=== PATIENT | male | born 1960 | race African-American/Black ===

== ENCOUNTER 2018-03-10 10:20 | Inpatient (IN) | payer OTHER ==
[2018-03-10 11:05] VITALS: BMI 33.2
--- NOTE | 2018-03-10 13:25 | HP ---
CIWA Score - Admission Criteria OASAS Guidelines: Admission for Medically Managed Detox: Requires at least one of the followin. CIWA greater than 12 2. Seizures within the past 24 hours 3. Delirium tremens within the past 24 hours 4. Hallucinations within the past 24 hours 5. Acute intervention needed for co occurring medical disorder 6. Acute intervention needed for co occurring psychiatric disorder 7. Severe withdrawal that cannot be handled at a lower level of care (continued vomiting, continued diarrhea, abnormal vital signs) requiring intravenous medication and/or fluids 8. Admission ROS [facility] - HPI Chief Complaint: i need help to come in for rehab from cocaine Allergies/Adverse Reactions: Allergies Allergy/AdvReac Type Severity Reaction Status Date / Time No Known Allergies Allergy Verified 03/10/18 11:43 History of Present Illness: this 58 years old male with cocaine dependence,sent in by [facility] out patient program history of hypertension and type 2 dm positive ppd treated in 1992 insomnia longest period of sobriety 2 years fail out patient program Exam Limitations: No Limitations - Ebola screening Have you traveled outside of the country in the last 21 days: No Have you had contact with anyone from an Ebola affected area: No Have you been sick,other than usual withdrawal symptoms: No Do you have a fever: No - Review of Systems Constitutional: No Symptoms Reported EENT: reports: No Symptoms Reported Respiratory: reports: No Symptoms reported Cardiac: reports: No Symptoms Reported GI: reports: No Symptoms Reported : reports: No Symptoms Reported Musculoskeletal: reports: No Symptoms Reported Integumentary: reports: No Symptoms Reported Neuro: reports: No Symptoms reported Hematology: reports: No Symptoms Reported Psychiatric: reports: No Sypmtoms Reported, Judgement Intact, Mood/Affect Appropiate, Orientated x3 (insomnia) Patient History - Patient Medical History Hx Anemia: No Hx Asthma: No Hx Chronic Obstructive Pulmonary Disease (COPD): No Hx Cancer: No Hx Cardiac Disorders: No Hx Congestive Heart Failure: No Hx Hypertension: Yes (on lisinopril 10 mgs po daily) Hx Hypercholesterolemia: No Hx Pacemaker: No HX Cerebrovascular Accident: No Hx Seizures: No Hx Dementia: No Hx Diabetes: Yes (NIDDM) Hx Gastrointestinal Disorders: Yes (acid reflux) Hx Liver Disease: No Hx Genitourinary Disorders: No Hx Sexually Transmitted Disorders: No Hx Renal Disease (ESRD): No Hx Thyroid Disease: No Hx Human Immunodeficiency Virus (HIV): No (tested eight months ago, [facility]) Hx Hepatitis C: No Hx Depression: No Hx Suicide Attempt: No Hx Bipolar Disorder: No Hx Schizophrenia: No Other Medical History: no suicidal,no homicidal - Patient Surgical History Past Surgical History: Yes Hx Neurologic Surgery: No Hx Cataract Extraction: No Hx Cardiac Surgery: No Hx Lung Surgery: No Hx Breast Surgery: No Hx Breast Biopsy: No Hx Abdominal Surgery: No Hx Appendectomy: No Hx Cholecystectomy: Yes (2013 lap) Hx Genitourinary Surgery: No Hx Section: No Hx Orthopedic Surgery: Yes (left rotator cuff in 2012 arthroscopy 2013) Hx Hysterectomy: No Anesthesia Reaction: No - PPD History Previous Implant?: Yes Documented Results: Positive w/o proof Implanted On Prior [facility] Admission?: No PPD to be Administered?: No - Smoking Cessation Smoking history: Never smoked Have you smoked in the past 12 months: No Hx Chewing Tobacco Use: No Initiated information on smoking cessation: No - Substance & Tx. History Hx Alcohol Use: No Hx Substance Use: Yes Substance Use Type: Cocaine Hx Substance Use Treatment: Yes (2012 in [facility] rehab) - Substances Abused Crack Route: Smoking Frequency: Daily Amount used: $500-600 Age of first use: 23 Date of Last Use: 02/24/18 Family Disease History - Family Disease History Family History: Denies Admission Physical Exam S - Vital Signs Vital Signs: Vital Signs - 24 hr 03/10/18 11:04 Temperature 96.5 F L Pulse Rate 44 L Respiratory 16 Rate Blood Pressure 132/61 - Physical General Appearance: Yes: Within Normal Limits HEENTM: Yes: Hearing grossly Normal, Normal ENT Inspection, AMANDA, Pharynx Normal Respiratory: Yes: Lungs Clear, Normal Breath Sounds, No Respiratory Distress Neck: Yes: Within Normal Limits, Supple, Trachea in good position Breast: Yes: Within Normal Limits Cardiology: Yes: Within Normal Limits Abdominal: Yes: Within Normal Limits, Normal Bowel Sounds, Non Tender, Flat, Soft Genitourinary: Yes: Within Normal Limits Back: Yes: Within Normal Limits Musculoskeletal: Yes: Within Normal Limits Extremities: Yes: Within Normal Limits Neurological: Yes: Within Normal Limits Integumentary: Yes: Within Normal Limits Lymphatic: Yes: Within Normal Limits - Diagnostic (1) Cocaine dependence Current Visit: No Status: Active (2) DM2 (diabetes mellitus, type 2) Current Visit: Yes Status: Acute (3) Essential hypertension Current Visit: Yes Status: Acute (4) Insomnia Current Visit: Yes Status: Acute Cleared for Admission BHS - Detox or Rehab Claeared for Rehab Admission: Yes BHS Breath Alcohol Content Breath Alcohol Content: 0 Urine Drug Screen - Results Drug Screen Negative: Yes Inpatient Rehab Admission - Initial Determination Are CD services needed?: Yes Free of communicable disease: Yes Not in need of hospitalization: Yes - Rehab Admission Criteria Previous failed treatment: Yes Poor recovery environment: Yes Comorbidities: Yes Lacks judgement: No Patient is meeting Inpatient Rehab admission criteria:: Yes
[2018-03-10] MEDS ORDERED: MAGNESIUM HYDROX 2400MG/30ML ORAL SUSPENSION 30 ML CUP PO PRN (13:36)
[2018-03-10] MEDS ORDERED: MAGNESIUM CITRATE 300 ML BOTTLE PO PRN (13:36)
[2018-03-10] MEDS ORDERED: ACETAMINOPHEN 325 MG TABLET (FP) PO PRN (13:36)
[2018-03-10] MEDS ORDERED: P-EPHED 60MG/TRIPROLIDI 2.5MG TABLET PO PRN (13:36)
[2018-03-10] MEDS ORDERED: guaiFENesin/D-METHORPHAN HB 10 ML UNIT-DOSE CUPS PO PRN (13:36)
[2018-03-10] MEDS ORDERED: MENTHOL/PHENOL 1 EACH UD MM PRN (13:36)
[2018-03-10] MEDS ORDERED: IBUPROFEN 400 MG TABLET (FP) PO PRN (13:36)
[2018-03-10] MEDS ORDERED: hydrOXYzine PAMOATE 50 MG CAPSULE (FP) PO PRN (13:36)
[2018-03-10] MEDS ORDERED: LOPERAMIDE HCL 2 MG CAPSULE PO PRN (13:36)
--- NOTE | 2018-03-10 16:06 | HP ---
Psychiatrist Admission - Data Date of interview: 03/11/18 Admission source: [facility] Identifying data: Patient is a 58 year old single male, father of two, unemployed (denies receiving financial assistance), and resides with a roomate. This is one of multiple admissions to rehab to [facility]. Patient admitted to for cocaine dependence. Medical History: hypertension, acid reflux, diabetes, cholecystectomy, left rotator cuff in 2012 arthroscopy 2014 Psychiatric History: Patient denies h/o psychiatric hospitalization, outpatient care, and suicide attempt. As per records patient has seen Dr. Heredia in the past to address insomnia. He was given a prescription of trazodone which patient states was effective. Physical/Sexual Abuse/Trauma History: denies. Additional Comment: Served in [employer] -. 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 Served in [employer] Vital Signs: Vital Signs - 24 hr 03/10/18 03/10/18 11:04 14:48 Temperature 96.5 F L 98 F Pulse Rate 44 L 89 Respiratory 16 19 Rate Blood Pressure 132/61 132/71 Allergies/Adverse Reactions: Allergies Allergy/AdvReac Type Severity Reaction Status Date / Time No Known Allergies Allergy Verified 03/10/18 11:43 Date of last physical exam: 03/10/18 Concur with the findings of this exam: Yes - Substance Abuse/Tx History Hx Alcohol Use: No Hx Substance Use: Yes (Cocaine- varies) Hx Substance Use Treatment: Yes ([facility] and [facility]) Mental Status Exam - Mental Status Exam Alert and Oriented to: Time, Place, Person Cognitive Function: Good Patient Appearance: Well Groomed Mood: Euthymic Affect: Appropriate Patient Behavior: Cooperative Speech Pattern: Clear Voice Loudness: Normal Thought Process: Intact, Goal Oriented Thought Disorder: Not Present Hallucinations: Denies Suicidal Ideation: Denies Homicidal Ideation: Denies Insight/Judgement: Poor Sleep: Poorly Appetite: Fair Muscle strength/Tone: Normal Gait/Station: Normal Psychiatric Findings - Problem List ([place] 1, 2,3) (1) Cocaine dependence Current Visit: Yes Status: Acute (2) Substance-induced sleep disorder Current Visit: Yes Status: Acute - Initial Treatment Plan Initial Treatment Plan: Psychoeducation provided. Rehabilitation in progress. Will order Trazodone 50mg qhs for insomnia. Patient reports favorable effects from taking trazodone in the past. Patient made aware of the risk of priapism when accepting Trazodone. Benefits and side effects discussed. Verbal consent given.
[2018-03-10] MEDS: metFORMIN HCL 500 MG TABLET (FP) PO SCH (16:26)
[2018-03-10 20:48] LABS: HEMATOCRIT 44.5 % (35.4-49); HEMOGLOBIN 15.5 GM/dL (11.7-16.9); MCH 30.9 pg (25.7-33.7); MCHC 34.8 g/dl (32.0-35.9); MEAN CELL VOLUME 88.7 fl (80-96); MEAN PLT VOLUME 8.6 fl (7.5-11.1); PLATELET COUNT 246 K/MM3 (134-434); RBC 5.02 M/mm3 (4.00-5.60); RDW 13.2 % (11.9-15.9); WHITE BLOOD COUNT 7.3 K/mm3 (4.0-10.0)
[2018-03-10 21:06] LABS: ALK PHOS 115 U/L (45-117); ANION GAP 7 MMOL/L (8-16); BILIRUBIN,TOTAL 0.4 mg/dL (0.2-1); BLOOD UREA NITROGEN 17 mg/dL (7-18); CALCIUM 9.7 mg/dL (8.5-10.1); CHLORIDE 100 mmol/L (98-107); CO2 29 mmol/L (21-32); CREATININE 1.2 mg/dL (0.55-1.3); GLUCOSE,RANDOM 266 mg/dL (74-106); POTASSIUM 4.3 mmol/L (3.5-5.1); SGOT/AST 10 U/L (15-37); SGPT/ALT 30 U/L (13-61); SODIUM 135 mmol/L (136-145); TOT PROT 7.7 g/dl (6.4-8.2)
[2018-03-10] MEDS: traZODone HCL 50 MG TABLET (FP) PO SCH (21:27)
[2018-03-10] MEDS: THIAMINE HCL 100 MG TABLET (FP) PO SCH (21:27)
[2018-03-10 22:02] LABS: URINE APPEARANCE SLCLOUDY; URINE BILIRUBIN NEGATIVE (<2.0 mg/dL); URINE COLOR YELLOW; URINE GLUCOSE (UA) 2+ (NEGATIVE); URINE KETONE NEGATIVE (NEGATIVE); URINE LEUK ESTERASE NEGATIVE (NEGATIVE); URINE NITRITE NEGATIVE (NEGATIVE); URINE PROTEIN NEGATIVE (NEGATIVE); URINE UROBILINOGEN NEGATIVE mg/dL (0.2-1.0)
[2018-03-11] MEDS: metFORMIN HCL 500 MG TABLET (FP) PO SCH ×2 (06:16→16:58)
[2018-03-11] MEDS: LISINOPRIL 10 MG TABLET (FP) PO SCH (10:32)
[2018-03-11] MEDS: PRENATAL VITAMINS W/ FOLIC ACID TABLET (FP) PO SCH (10:32)
--- NOTE | 2018-03-11 12:37 | EKG ---
Test Reason : Blood Pressure : / mmHG Vent. Rate : 087 BPM Atrial Rate : 087 BPM P-R Int : 188 ms QRS Dur : 106 ms QT Int : 368 ms P-R-T Axes : 070 -08 049 degrees QTc Int : 442 ms SINUS RHYTHM WITH FREQUENT PREMATURE VENTRICULAR COMPLEXES T WAVE ABNORMALITY, CONSIDER ANTEROLATERAL ISCHEMIA ABNORMAL ECG Confirmed by MD KOBE, GIGI ([id number]) on 03/11/2018 12:37:05 PM Referred By: Confirmed By:GIGI BULLOCK MD
--- NOTE | 2018-03-11 15:25 | PN ---
BHS Progress Note Note: Reviewed available lab and cxray results with pt per his request
[2018-03-11] MEDS: MAG HYDROX/AL HYDROX/SIMETH 30 ML UNIT-DOSE CUP PO PRN (18:46)
[2018-03-11] MEDS: traZODone HCL 50 MG TABLET (FP) PO SCH (21:45)
[2018-03-11] MEDS: THIAMINE HCL 100 MG TABLET (FP) PO SCH (21:46)
[2018-03-12] MEDS: metFORMIN HCL 500 MG TABLET (FP) PO SCH ×2 (06:19→16:44)
[2018-03-12] MEDS: LISINOPRIL 10 MG TABLET (FP) PO SCH (10:23)
[2018-03-12] MEDS: PRENATAL VITAMINS W/ FOLIC ACID TABLET (FP) PO SCH (10:23)
--- NOTE | 2018-03-12 14:32 | PN ---
[facility] Progress Note Note: Patient reports ongoing sleeping difficulties,still unable to fall asleep and stay in sleep.Properties of Trazodone has been discussed with the patient including side effects,benefits and dose adjustment.Trazodone 50 mg po hs will be adjusted to 100 mg po hs.Supportive therapy provided.
[2018-03-12] MEDS: MAG HYDROX/AL HYDROX/SIMETH 30 ML UNIT-DOSE CUP PO PRN (19:18)
[2018-03-12] MEDS: traZODone HCL 100 MG TABLET (FP) PO SCH (21:41)
[2018-03-12] MEDS: THIAMINE HCL 100 MG TABLET (FP) PO SCH (21:41)
[2018-03-13] MEDS: metFORMIN HCL 500 MG TABLET (FP) PO SCH ×2 (06:52→16:37)
[2018-03-13] MEDS: LISINOPRIL 10 MG TABLET (FP) PO SCH (10:49)
[2018-03-13] MEDS: PRENATAL VITAMINS W/ FOLIC ACID TABLET (FP) PO SCH (10:49)
[2018-03-13] MEDS: traZODone HCL 100 MG TABLET (FP) PO SCH (21:35)
[2018-03-13] MEDS: MELATONIN 5 MG TABLETS PO PRN (21:36)
[2018-03-13] MEDS: THIAMINE HCL 100 MG TABLET (FP) PO SCH (21:36)
[2018-03-14] MEDS: metFORMIN HCL 500 MG TABLET (FP) PO SCH ×2 (07:05→16:35)
[2018-03-14] MEDS: PRENATAL VITAMINS W/ FOLIC ACID TABLET (FP) PO SCH (10:04)
[2018-03-14] MEDS: LISINOPRIL 10 MG TABLET (FP) PO SCH (10:05)
[2018-03-14] MEDS: THIAMINE HCL 100 MG TABLET (FP) PO SCH (21:46)
[2018-03-14] MEDS: MELATONIN 5 MG TABLETS PO PRN (21:46)
[2018-03-14] MEDS: traZODone HCL 100 MG TABLET (FP) PO SCH (21:46)
[2018-03-15] MEDS: metFORMIN HCL 500 MG TABLET (FP) PO SCH ×2 (06:51→16:33)
[2018-03-15] MEDS: LISINOPRIL 10 MG TABLET (FP) PO SCH (09:58)
[2018-03-15] MEDS: PRENATAL VITAMINS W/ FOLIC ACID TABLET (FP) PO SCH (09:58)
[2018-03-15] MEDS: MAG HYDROX/AL HYDROX/SIMETH 30 ML UNIT-DOSE CUP PO PRN (14:10)
[2018-03-15] MEDS: THIAMINE HCL 100 MG TABLET (FP) PO SCH (21:32)
[2018-03-15] MEDS: MELATONIN 5 MG TABLETS PO PRN (21:32)
[2018-03-15] MEDS: traZODone HCL 100 MG TABLET (FP) PO SCH (21:32)
[2018-03-16] MEDS: metFORMIN HCL 500 MG TABLET (FP) PO SCH ×2 (06:25→16:31)
[2018-03-16] MEDS: PRENATAL VITAMINS W/ FOLIC ACID TABLET (FP) PO SCH (10:01)
[2018-03-16] MEDS: LISINOPRIL 10 MG TABLET (FP) PO SCH (10:01)
[2018-03-16] MEDS: THIAMINE HCL 100 MG TABLET (FP) PO SCH (21:33)
[2018-03-16] MEDS: traZODone HCL 100 MG TABLET (FP) PO SCH (21:33)
[2018-03-16] MEDS: MELATONIN 5 MG TABLETS PO PRN (21:33)
[2018-03-17] MEDS: metFORMIN HCL 500 MG TABLET (FP) PO SCH ×2 (06:20→16:36)
[2018-03-17] MEDS: LISINOPRIL 10 MG TABLET (FP) PO SCH (10:52)
[2018-03-17] MEDS: PRENATAL VITAMINS W/ FOLIC ACID TABLET (FP) PO SCH (10:53)
--- NOTE | 2018-03-17 13:32 | PN ---
Psychiatric Progress Note Vital Signs: Vital Signs Period Temp Pulse Resp BP Sys/Murphy Pulse Ox Last 24 Hr 97.6 F 82 16-18 136/76 Date of Session: 03/17/18 Chief Complaint:: Discharge Note HPI: Patient addressing Cocaine Dependence comorbid with Substance-Induced Sleep Disorder ROS: HTN, DM, GERD were medically managed Current Medications: Active Medications Generic Name Dose Route Start Last Admin Trade Name Freq PRN Reason Stop Dose Admin Acetaminophen 650 mg 03/10/18 13:36 Tylenol - PO Q4H PRN FEVER Al Hydroxide/Mg Hydroxide 30 ml 03/10/18 13:36 03/15/18 14:10 Mylanta Oral Suspension - PO 30 ml Q6H PRN Administration DYSPEPSIA Eucalyptus/Menthol/Phenol/Sorbitol 1 each 03/10/18 13:36 Cepastat Lozenge - MM Q4H PRN SORE THROAT Guaifenesin 10 ml 03/10/18 13:36 Robitussin Dm - PO Q6H PRN COUGH Hydroxyzine Pamoate 50 mg 03/10/18 13:36 Vistaril - PO Q4H PRN AGITATION Ibuprofen 400 mg 03/10/18 13:36 Motrin - PO Q6H PRN Pain level 4-6 Lisinopril 10 mg 03/11/18 10:00 03/17/18 10:52 Prinivil PO 10 mg DAILY VASILE Administration Loperamide HCl 4 mg 03/10/18 13:36 Imodium - PO Q6H PRN DIARRHEA Magnesium Citrate 300 ml 03/10/18 13:36 Citroma - PO Q48H PRN CONSTIPATION Magnesium Hydroxide 30 ml 03/10/18 13:36 Milk Of Magnesia - PO DAILY PRN CONSTIPATION Melatonin 5 mg 03/10/18 22:00 03/16/18 21:33 Melatonin PO 5 mg HS PRN Administration INSOMNIA Metformin HCl 500 mg 03/10/18 16:30 03/17/18 06:20 Glucophage - PO 500 mg BID@0700,1630 VASILE Administration Multivit/Folic Acid/Iron 1 tab 03/11/18 10:00 03/17/18 10:53 Vitamins (Sjr) - PO 1 tab DAILY VASILE Administration Pseudoephedrine/Triprolidine 1 combo 03/10/18 13:36 Actifed - PO TID PRN NASAL CONGESTION Thiamine HCl 100 mg 03/10/18 22:00 03/16/18 21:33 Vitamin B1 - PO Not Given HS VASILE Trazodone HCl 100 mg 03/12/18 22:00 03/16/18 21:33 Desyrel - PO 100 mg HS VASILE Administration Current Side Effect: No Lab tests ordered: Yes Lab tests reviewed: Yes Provider note:: Patient will complete this program on 03/18/18. He has met his treatment goals and will continue to address his issues in outpatient at [facility] at [address] [place] [address]. Told sql report writer that from his participation in this program, he has learned that it is very important to use the tools acquired . He responded well to Fpzzlhand215 mg po HS. Script for 30 days supply of that medication will be electronically transmitted to [facility] at [address] [place] [address]. He is stable for discharge on 03/18/18 Total face to face time:: 35 Mental Status Exam - Mental Status Exam Alert and Oriented to: Time, Place, Person Cognitive Function: Fair Patient Appearance: Well Groomed Mood: Hopeful, Euthymic Affect: Appropriate Patient Behavior: Cooperative Speech Pattern: Clear Voice Loudness: Normal Thought Process: Intact Thought Disorder: Not Present Hallucinations: Denies Suicidal Ideation: Denies Homicidal Ideation: Denies Insight/Judgement: Fair Sleep: Fair Appetite: Good Muscle strength/Tone: Normal Gait/Station: Normal Psychiatric Treatment Plan - Problem List (1) Cocaine dependence Current Visit: Yes (2) Substance-induced sleep disorder Current Visit: Yes (3) Substance-induced sleep disorder Current Visit: Yes (4) DM2 (diabetes mellitus, type 2) Current Visit: Yes (5) Essential hypertension Current Visit: Yes (6) GERD (gastroesophageal reflux disease) Current Visit: Yes Initial treatment plan: Patient will be discharged tomorrow and referred to [facility] for outpatient treatment
[2018-03-17] MEDS: MELATONIN 5 MG TABLETS PO PRN (21:29)
[2018-03-17] MEDS: traZODone HCL 100 MG TABLET (FP) PO SCH (21:29)
[2018-03-17] MEDS: THIAMINE HCL 100 MG TABLET (FP) PO SCH (21:30)
[2018-03-18] MEDS: metFORMIN HCL 500 MG TABLET (FP) PO SCH (06:07)
[2018-03-18 06:43] VITALS: BP 136/75; PULSE 71; TEMP 97.9
[2018-03-18] MEDS: LISINOPRIL 10 MG TABLET (FP) PO SCH (10:25)
[2018-03-18] MEDS: PRENATAL VITAMINS W/ FOLIC ACID TABLET (FP) PO SCH (10:25)
--- NOTE | 2018-03-18 10:42 | PN ---
S Progress Note Note: REHAB COMPLETED. PT REPORTS HE HAS PRIMARY CARE AT [facility] IN [place], [place]. REPORTS HE HAS OWN MEDS AT HOME. REFERRED TO [facility] FOR AFTERCARE. Vital Signs 03/18/18 03/18/18 03:24 06:43 Temperature 97.9 F Pulse Rate 71 Respiratory 18 18 Rate Blood Pressure 136/75 NAD PLAN:FOLLOW UP WITH PCP AT [facility] FOLLOW UP AT [facility] FOR CD AFTERCARE RECOMMENDED.
== END 2018-03-18 11:30 | disposition home or self-care (01) | DRG 772 ==
LOC: YASAS 10:20 → Y5N 13:36
PROVIDERS: ADMIT Psychiatry & Neurology Psychiatry; ATTEND Psychiatry & Neurology Psychiatry
PROC: HZ42ZZZ Group Counseling for Substance Abuse Treatment, Cognitive-Behavioral (ICD-10-PCS; principal; 2018-03-10)
DX: F14.20 Cocaine dependence, uncomplicated (principal); F19.282 Other psychoactive substance dependence with psychoactive substance-induced sleep disorder; I10 Essential (primary) hypertension; K21.9 Gastro-esophageal reflux disease without esophagitis; E11.9 Type 2 diabetes mellitus without complications; Z79.84 Long term (current) use of oral hypoglycemic drugs; G47.00 Insomnia, unspecified; Z98.890 Other specified postprocedural states
CPT/HCPCS: 36415; 71046-TC-FY; 80053; 81003; 82962; 85027; 86593; 87389; 93005; 93010

== ENCOUNTER 2019-06-24 10:26 | Inpatient (IN) | payer OTHER ==
--- NOTE | 2019-06-24 11:36 | BHS.RME ---
Substance Use & Tx History - Substance Use History Alcohol Substance amount: 2 pints of rum,vodka,and gin Frequency of use: Daily Substance route: Oral Date of Last Use: 06/23/19 Cocaine (Crack) Substance amount: 300$ Frequency of use: Daily Substance route: Smoking Date of Last Use: 06/23/19 PCP Substance amount: 40$ Frequency of use: Less than 3 times per week Substance route: Smoking Date of Last Use: 06/23/19 - Last Treatment Date of last treatment: 10/30/12 to 11/13/12 [facility] Where was last treatment: Rehab Physical/Psych/Mental Status - Behavior General Behavior: Increased activity (restlessness, agitation) Eye Contact: Normal - Cooperativeness Cooperativeness: Cooperative - Thinking Thought Processes: Logical Thought content: Future oriented - Physical Health Problems Is patient presently having any pain?: No Does patient presently have any injuries (include location): No Does patient currently have a fever: No CIWA Nausea/Vomitin (history of diabetes and hypertension) Muscle Tremors: 3 Anxiety: 3 Agitation: 3 Paroxysmal Sweats: 1-Minimal Palms Moist Orientation: 0-Oriented Tacttile Disturbances: 1-Very Mild Itch/Numbness Auditory Disturbances: 0-None Visual Disturbances: 0-None Headache: 1-Very Mild CIWA-Ar Total Score: 14
--- NOTE | 2019-06-24 13:08 | HP ---
CIWA Score Nausea/Vomitin (history of diabetes and hypertension) Muscle Tremors: 3 Anxiety: 3 Agitation: 3 Paroxysmal Sweats: 1-Minimal Palms Moist Orientation: 0-Oriented Tacttile Disturbances: 1-Very Mild Itch/Numbness Auditory Disturbances: 0-None Visual Disturbances: 0-None Headache: 1-Very Mild CIWA-Ar Total Score: 14 - Admission Criteria OASAS Guidelines: Admission for Medically Managed Detox: Requires at least one of the followin. CIWA greater than 12 2. Seizures within the past 24 hours 3. Delirium tremens within the past 24 hours 4. Hallucinations within the past 24 hours 5. Acute intervention needed for co occurring medical disorder 6. Acute intervention needed for co occurring psychiatric disorder 7. Severe withdrawal that cannot be handled at a lower level of care (continued vomiting, continued diarrhea, abnormal vital signs) requiring intravenous medication and/or fluids 8. Admitting History and Physical - Admission Chief Complaint: i need help to stop drinking alcohol and cocaine History of Present Illness: this 59 years old male with alcohol and cocaine dependence seeking help to stop,last treatment in [facility] 10/30/12 to 11/13/12 denied seizure denied syncope fail outpatient program History Source: Patient Limitations to Obtaining History: No Limitations - Past Medical History Cardiovascular: Yes: HTN Psych: Yes: Other (PTSD) Endocrine: Yes: Diabetes Mellitus - Past Surgical History Past Surgical History: Yes: None Additional Past Surgical History: lap cholecystectomy in 2016 laft shoulder in 2014 - Smoking History Smoking history: Never smoked Have you smoked in the past 12 months: No Aproximately how many cigarettes per day: 6 - Alcohol/Substance Use Hx Alcohol Use: Yes Number of Drinks Daily: 4 (pints) History of Substance Use: reports: Cocaine Date of Last Use: 03/13/19 - Social History Usual Living Arrangement: Yes: Other (live with sister) ADL: Independent Occupation: unemployed History of Recent Travel: No Admission ROS S - HPI Chief Complaint: i need help to stop drinking alcohol,cocaine,pcp Allergies/Adverse Reactions: Allergies Allergy/AdvReac Type Severity Reaction Status Date / Time No Known Allergies Allergy Verified 03/10/18 11:43 History of Present Illness: this 59 years old male with alcohol,cocaine, dependence,pcp abused,seeking detox, last detox in 2017 [facility] hypertension,type 2 dm non compliance longest sobriety 2 years plan for rehab ptsd,anxiety,depression non compliance Exam Limitations: No Limitations - Ebola screening Have you traveled outside of the country in the last 21 days: Yes Have you had contact with anyone from an Ebola affected area: No Have you been sick,other than usual withdrawal symptoms: No Do you have a fever: No - Review of Systems Constitutional: Loss of Appetite, Malaise, Night Sweats, Changes in sleep, Weakness EENT: reports: Tearing, Nose Congestion Respiratory: reports: No Symptoms reported Cardiac: reports: No Symptoms Reported GI: reports: Nausea, Poor Appetite, Abdominal cramping : reports: No Symptoms Reported Musculoskeletal: reports: Back Pain, Muscle Pain Integumentary: reports: Dryness Neuro: reports: Headache, Tremors Endocrine: reports: No Symptoms Reported Hematology: reports: No Symptoms Reported Psychiatric: reports: No Sypmtoms Reported, Judgement Intact, Mood/Affect Appropiate, Orientated x3, Anxious, Depressed, other (ptsd) Patient History - Patient Medical History Hx Anemia: No Hx Asthma: No Hx Chronic Obstructive Pulmonary Disease (COPD): No Hx Cancer: No Hx Cardiac Disorders: No Hx Congestive Heart Failure: No Hx Hypertension: Yes (non compliance) Hx Hypercholesterolemia: No Hx Pacemaker: No HX Cerebrovascular Accident: No Hx Seizures: No Hx Dementia: No Hx Diabetes: Yes (type 2 metformin) Hx Gastrointestinal Disorders: No Hx Liver Disease: No Hx Genitourinary Disorders: No Hx Sexually Transmitted Disorders: No Hx Renal Disease (ESRD): No Hx Thyroid Disease: No Hx Human Immunodeficiency Virus (HIV): No (last 04/2019) Hx Hepatitis C: No Hx Depression: Yes Hx Suicide Attempt: No Hx Bipolar Disorder: No Hx Schizophrenia: No Other Medical History: anxiety,ptsd,no suicidal - Patient Surgical History Past Surgical History: Yes Hx Neurologic Surgery: No Hx Cataract Extraction: No Hx Cardiac Surgery: No Hx Lung Surgery: No Hx Breast Surgery: No Hx Breast Biopsy: No Hx Abdominal Surgery: No Hx Appendectomy: No Hx Cholecystectomy: Yes (2015) Hx Genitourinary Surgery: No Hx Section: No Hx Orthopedic Surgery: Yes (left rotator cuff in 2012 arthroscopy 2014) Hx Hysterectomy: No Anesthesia Reaction: No - PPD History Documented Results: Positive w/o proof PPD to be Administered?: No - Smoking Cessation Smoking history: Never smoked Have you smoked in the past 12 months: No Hx Chewing Tobacco Use: No - Substance & Tx. History Hx Alcohol Use: Yes Hx Substance Use: Yes Substance Use Type: Alcohol, Cocaine Hx Substance Use Treatment: Yes ([facility] 2017 rehab) - Substances abused Alcohol Substance route: Oral Frequency: Daily Amount used: ppints of vodka,rum,gin Age of first use: 13 Date of last use: 06/23/19 Cocaine Frequency: Daily Amount used: 300$ Age of first use: 23 Date of last use: 06/23/19 None Other (specify): pcp Substance route: Smoking Frequency: 3-6 times per week Amount used: 40$ Age of first use: 14 Date of last use: 06/23/19 Admission Physical Exam [facility] - Physical General Appearance: Yes: Moderate Distress, Tremorous, Irritable, Sweating, Anxious HEENTM: Yes: Normal ENT Inspection, AMANDA, Pharynx Normal Respiratory: Yes: Lungs Clear, Normal Breath Sounds, No Respiratory Distress Neck: Yes: Within Normal Limits, Supple, Trachea in good position Breast: Yes: Within Normal Limits Cardiology: Yes: Within Normal Limits, Regular Rhythm, Regular Rate, S1, S2 Abdominal: Yes: Normal Bowel Sounds, Non Tender, Flat, Soft, Surgical Scar Genitourinary: Yes: Within Normal Limits Back: Yes: Muscle Spasm Musculoskeletal: Yes: Back pain, Muscle Pain Extremities: Yes: Tremors Neurological: Yes: track hoe operator II-XII NML intact, Fully Oriented, Alert, Motor Strength 5/5 Integumentary: Yes: Dry Lymphatic: Yes: Within Normal Limits - Diagnostic (1) Alcohol dependence with uncomplicated withdrawal Current Visit: Yes Status: Acute (2) DM2 (diabetes mellitus, type 2) Current Visit: No Status: Chronic (3) Essential hypertension Current Visit: No Status: Chronic (4) Cocaine dependence Current Visit: No Status: Acute Cleared for Admission [facility] - Detox or Rehab [facility] Level of Care: Medically Managed Detox Regimen/Protocol: m2p-labsium Urine Drug Screen - Test Device Lot number: [id number] Expiration date: 03/14/21 - Control Is test valid?: Yes - Results Drug screen NEGATIVE: Yes Urine drug screen results: ROCIO-Cocaine Inpatient Rehab Admission - Rehab Decision to Admit Inpatient rehab admission?: No
[2019-06-24] MEDS ORDERED: METHOCARBAMOL 500 MG TABLET PO PRN (13:22)
[2019-06-24] MEDS ORDERED: MENTHOL/PHENOL 1 EACH UD MM PRN (13:22)
[2019-06-24] MEDS ORDERED: MAGNESIUM CITRATE 300 ML BOTTLE PO PRN (13:22)
[2019-06-24] MEDS ORDERED: MAG HYDROX/AL HYDROX/SIMETH 30 ML UNIT-DOSE CUP PO PRN (13:22)
[2019-06-24] MEDS ORDERED: MAGNESIUM HYDROX 2400MG/30ML ORAL SUSPENSION 30 ML CUP PO PRN (13:22)
[2019-06-24] MEDS ORDERED: IBUPROFEN 400 MG TABLET (FP) PO PRN (13:22)
[2019-06-24] MEDS ORDERED: chlordiazePOXIDE HCL 25 MG CAPSULE PO PRN (13:22)
[2019-06-24] MEDS ORDERED: ACETAMINOPHEN 325 MG TABLET (FP) PO PRN ×2 (13:22)
[2019-06-24] MEDS ORDERED: ONDANSETRON *ODT* 4 MG TABLET SL ONE (14:11)
[2019-06-24] MEDS: hydrOXYzine PAMOATE 25 MG CAPSULE (FP) PO SCH ×3 (14:42→22:24)
[2019-06-24] MEDS: LISINOPRIL 10 MG TABLET (FP) PO SCH (14:42)
[2019-06-24 16:41] LABS: HEMATOCRIT 44.6 % (35.4-49); HEMOGLOBIN 14.8 GM/dL (11.7-16.9); MCH 30.4 pg (25.7-33.7); MCHC 33.1 g/dl (32.0-35.9); MEAN CELL VOLUME 91.9 fl (80-96); MEAN PLT VOLUME 8.1 fl (7.5-11.1); PLATELET COUNT 254 K/MM3 (134-434); RBC 4.85 M/mm3 (4.00-5.60); RDW 13.9 % (11.9-15.9); WHITE BLOOD COUNT 6.8 K/mm3 (4.0-10.0)
[2019-06-24] MEDS: metFORMIN HCL 500 MG TABLET (FP) PO SCH (16:43)
[2019-06-24] MEDS: chlordiazePOXIDE HCL 25 MG CAPSULE PO SCH ×2 (16:43→22:21)
[2019-06-24 16:51] LABS: ALBUMIN 3.7 g/dl (3.4-5.0); BILIRUBIN,TOTAL 0.4 mg/dL (0.2-1); BLOOD UREA NITROGEN 18.3 mg/dL (7-18); CALCIUM 9.2 mg/dL (8.5-10.1); CREATININE 1.2 mg/dL (0.55-1.3); POTASSIUM 4.2 mmol/L (3.5-5.1); TOT PROT 7.8 g/dl (6.4-8.2)
[2019-06-24] MEDS: THIAMINE HCL 100 MG TABLET (FP) PO SCH (22:21)
[2019-06-24] MEDS: MELATONIN 5 MG TABLETS PO SCH (22:24)
[2019-06-25] MEDS: hydrOXYzine PAMOATE 25 MG CAPSULE (FP) PO SCH ×5 (07:08→22:34)
[2019-06-25] MEDS: metFORMIN HCL 500 MG TABLET (FP) PO SCH ×2 (07:08→16:42)
[2019-06-25] MEDS: chlordiazePOXIDE HCL 25 MG CAPSULE PO SCH ×4 (07:09→22:36)
--- NOTE | 2019-06-25 09:10 | CONSULT ---
[facility] Psychiatric Consult - Data Date of interview: 06/25/19 Admission source: Self-referred Identifying data: Mr Stallings is a 59 years old single Black male, father of 2 children, unemployed receiving SSI, living with her sister seeking detox treatment for alcohol, cocaine and phencyclidine Substance Abuse History: Reports history of alcohol, cocaine and pcp use. Refer to addiction counselor's summary for further information Medical History: Significant for hypertension, acid reflux, type 2 diabetes mellitus, history of cholecystectomy and arthroscopic surgery for left rotator cuff repair in 2014. Psychiatric History: Denies history of previous psychiatric treatment. However, reports sleeping poorly. Requests to be ordred Trazadone 200 mg/hs which he said has helped him in the past when he was in the [facility] Physical/Sexual Abuse/Trauma History: Denies history of physical or sexual abuse. Served in [employer] -. 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 Served in [employer]. Denies flashbacks to this. Mental Status Exam - Mental Status Exam Alert and Oriented to: Time, Place, Person Cognitive Function: Fair Patient Appearance: Well Groomed Mood: Hopeful, Euthymic Patient Behavior: Cooperative Speech Pattern: Clear Voice Loudness: Normal Thought Process: Intact, Goal Oriented Thought Disorder: Not Present Hallucinations: Denies Suicidal Ideation: Denies Homicidal Ideation: Denies Insight/Judgement: Poor Sleep: Poorly Appetite: Good Muscle strength/Tone: Normal Gait/Station: Normal Psychiatric Findings - Problem List ([place] 1, 2,3) (1) Substance-induced sleep disorder Current Visit: No Status: Acute (2) Alcohol dependence with uncomplicated withdrawal Current Visit: Yes Status: Acute (3) Cocaine dependence Current Visit: No Status: Acute (4) Phencyclidine dependence Current Visit: Yes Status: Acute (5) DM2 (diabetes mellitus, type 2) Current Visit: No Status: Chronic (6) Essential hypertension Current Visit: No Status: Chronic (7) GERD (gastroesophageal reflux disease) Current Visit: No Status: Chronic - Initial Treatment Plan Initial Treatment Plan: 1) Start Trazadone 200 mg po HS. 2) Continue inpatient detoxification
--- NOTE | 2019-06-25 09:26 | PN ---
S CIWA - CIWA Score Nausea/Vomitin-Mild Nausea/No Vomiting Muscle Tremors: 2 Anxiety: 2 Agitation: 2 Paroxysmal Sweats: No Perspiration Orientation: 0-Oriented Tacttile Disturbances: 1-Very Mild Itch/Numbness Auditory Disturbances: 0-None Visual Disturbances: 0-None Headache: 2-Mild CIWA-Ar Total Score: 10 S Progress Note (SOAP) Subjective: alert,irritable,anxious,interrupted sleep,tremor Objective: 06/25/19 09:24 Vital Signs Temperature 97.9 F 06/25/19 06:21 Pulse Rate 83 06/25/19 06:21 Respiratory Rate 20 06/25/19 06:21 Blood Pressure 102/68 06/25/19 06:21 O2 Sat by Pulse Oximetry (%) 06/25/19 09:24 Laboratory Last Values WBC 6.8 K/mm3 (4.0-10.0) 06/24/19 13:40 RBC 4.85 M/mm3 (4.00-5.60) 06/24/19 13:40 Hgb 14.8 GM/dL (11.7-16.9) 06/24/19 13:40 Hct 44.6 % (35.4-49) 06/24/19 13:40 MCV 91.9 fl (80-96) 06/24/19 13:40 MCH 30.4 pg (25.7-33.7) 06/24/19 13:40 MCHC 33.1 g/dl (32.0-35.9) 06/24/19 13:40 RDW 13.9 % (11.9-15.9) 06/24/19 13:40 Plt Count 254 K/MM3 (134-434) 06/24/19 13:40 MPV 8.1 fl (7.5-11.1) 06/24/19 13:40 Sodium 141 mmol/L (136-145) 06/24/19 13:40 Potassium 4.2 mmol/L (3.5-5.1) 06/24/19 13:40 Chloride 106 mmol/L (98-107) 06/24/19 13:40 Carbon Dioxide 28 mmol/L (21-32) 06/24/19 13:40 Anion Gap 8 MMOL/L (8-16) 06/24/19 13:40 BUN 18.3 mg/dL (7-18) H 06/24/19 13:40 Creatinine 1.2 mg/dL (0.55-1.3) 06/24/19 13:40 Est GFR (CKD-EPI)AfAm 77.33 06/24/19 13:40 Est GFR (CKD-EPI)NonAf 66.72 06/24/19 13:40 POC Glucometer 253 UNITS (80-120) 06/25/19 07:07 Random Glucose 183 mg/dL (74-106) H 06/24/19 13:40 Calcium 9.2 mg/dL (8.5-10.1) 06/24/19 13:40 Total Bilirubin 0.4 mg/dL (0.2-1) 06/24/19 13:40 AST 19 U/L (15-37) 06/24/19 13:40 ALT 32 U/L (13-61) 06/24/19 13:40 Alkaline Phosphatase 121 U/L (45-117) H 06/24/19 13:40 Total Protein 7.8 g/dl (6.4-8.2) 06/24/19 13:40 Albumin 3.7 g/dl (3.4-5.0) 06/24/19 13:40 06/25/19 09:25 rpr pending Assessment: 06/25/19 09:25 withdrawal symptom Plan: continue detox librium regimen,metformin 500 mgs po bid,bgm monitoring,patient would like to be on regular diet
--- NOTE | 2019-06-25 10:30 | EKG ---
Test Reason : Blood Pressure : / mmHG Vent. Rate : 070 BPM Atrial Rate : 070 BPM P-R Int : 192 ms QRS Dur : 110 ms QT Int : 408 ms P-R-T Axes : 063 -24 -54 degrees QTc Int : 440 ms NORMAL SINUS RHYTHM INCOMPLETE RIGHT BUNDLE BRANCH BLOCK T WAVE ABNORMALITY, CONSIDER INFEROLATERAL ISCHEMIA ABNORMAL ECG WHEN COMPARED WITH ECG OF 10-MAR-2018 14:54, PREMATURE VENTRICULAR COMPLEXES ARE NO LONGER PRESENT NON-SPECIFIC CHANGE IN ST SEGMENT IN ANTERIOR LEADS INVERTED T WAVES HAVE REPLACED NONSPECIFIC T WAVE ABNORMALITY IN INFERIOR LEADS Confirmed by YAZAN HOLLY MD ([id number]) on 06/25/2019 10:30:04 AM Referred By: Confirmed By:YAZAN HOLLY MD
[2019-06-25] MEDS: LISINOPRIL 10 MG TABLET (FP) PO SCH (10:40)
[2019-06-25] MEDS: PRENATAL VITAMINS W/ FOLIC ACID TABLET (FP) PO SCH (10:40)
[2019-06-25] MEDS: traZODone HCL 100 MG TABLET (FP) PO SCH (22:34)
[2019-06-25] MEDS: THIAMINE HCL 100 MG TABLET (FP) PO SCH (22:34)
[2019-06-25] MEDS: MELATONIN 5 MG TABLETS PO SCH (22:35)
[2019-06-26] MEDS: chlordiazePOXIDE HCL 25 MG CAPSULE PO SCH ×4 (05:33→22:02)
[2019-06-26] MEDS: hydrOXYzine PAMOATE 25 MG CAPSULE (FP) PO SCH ×5 (05:33→21:32)
[2019-06-26] MEDS: metFORMIN HCL 500 MG TABLET (FP) PO SCH ×2 (06:45→16:43)
--- NOTE | 2019-06-26 10:11 | PN ---
S CIWA - CIWA Score Nausea/Vomitin-Mild Nausea/No Vomiting Muscle Tremors: 2 Anxiety: 1-Mildly Anxious Agitation: 1-Slight > Activity Paroxysmal Sweats: 1-Minimal Palms Moist Orientation: 0-Oriented Tacttile Disturbances: 0-None Auditory Disturbances: 0-None Visual Disturbances: 0-None Headache: 1-Very Mild CIWA-Ar Total Score: 7 BHS Progress Note (SOAP) Subjective: pt admitted for alcohol detox. No complaints today O: Vital Signs - 24 hr 06/25/19 06/25/19 06/26/19 12:33 20:21 00:29 Temperature 98.1 F 98.4 F Pulse Rate 79 86 Respiratory 18 17 18 Rate Blood Pressure 151/84 142/76 06/26/19 06/26/19 06/26/19 03:24 05:29 08:52 Temperature 97.9 F 98.1 F Pulse Rate 98 H 99 H Respiratory 18 16 18 Rate Blood Pressure 140/76 138/78 Laboratory Tests 06/24/19 06/24/19 06/24/19 12:30 13:40 13:40 WBC 6.8 RBC 4.85 Hgb 14.8 Hct 44.6 MCV 91.9 MCH 30.4 MCHC 33.1 RDW 13.9 Plt Count 254 MPV 8.1 Sodium 141 Potassium 4.2 Chloride 106 Carbon Dioxide 28 Anion Gap 8 BUN 18.3 H Creatinine 1.2 Est GFR (CKD-EPI)AfAm 77.33 Est GFR (CKD-EPI)NonAf 66.72 POC Glucometer 190 Random Glucose 183 H Calcium 9.2 Total Bilirubin 0.4 AST 19 ALT 32 Alkaline Phosphatase 121 H Total Protein 7.8 Albumin 3.7 RPR Titer 06/24/19 06/24/19 06/25/19 13:40 16:32 07:07 WBC RBC Hgb Hct MCV MCH MCHC RDW Plt Count MPV Sodium Potassium Chloride Carbon Dioxide Anion Gap BUN Creatinine Est GFR (CKD-EPI)AfAm Est GFR (CKD-EPI)NonAf POC Glucometer 252 253 Random Glucose Calcium Total Bilirubin AST ALT Alkaline Phosphatase Total Protein Albumin RPR Titer Nonreactive 06/25/19 06/26/19 16:36 05:32 WBC RBC Hgb Hct MCV MCH MCHC RDW Plt Count MPV Sodium Potassium Chloride Carbon Dioxide Anion Gap BUN Creatinine Est GFR (CKD-EPI)AfAm Est GFR (CKD-EPI)NonAf POC Glucometer 210 269 Random Glucose Calcium Total Bilirubin AST ALT Alkaline Phosphatase Total Protein Albumin RPR Titer Home Medication List Medication Instructions Recorded Confirmed Type Lisinopril [Prinivil] 10 mg PO DAILY 11/08/16 03/10/18 History metFORMIN HCL [Glucophage -] 500 mg PO BID 11/08/16 03/10/18 History Active Medications Generic Name Dose Route Start Last Admin Trade Name Freq PRN Reason Stop Dose Admin Acetaminophen 650 mg 06/24/19 13:22 Tylenol - PO Q6H PRN PAIN LEVEL 4 - 6 Acetaminophen 650 mg 06/24/19 13:22 Tylenol - PO Q6H PRN FEVER Al Hydroxide/Mg Hydroxide 30 ml 06/24/19 13:22 Mylanta Oral Suspension - PO Q6H PRN DYSPEPSIA Bismuth Subsalicylate 524 mg 06/24/19 13:22 Pepto-Bismol - PO Q1H PRN DIARRHEA Chlordiazepoxide HCl 25 mg 06/26/19 05:00 06/26/19 05:33 Librium - PO 06/26/19 23:01 25 mg [id number] VASILE Administration Chlordiazepoxide HCl 25 mg 06/24/19 13:22 Librium - PO 06/26/19 23:59 Q4H PRN WITHDRAWAL(CONT SUBST) Chlordiazepoxide HCl 10 mg 06/27/19 05:00 Librium - PO 06/27/19 23:01 [id number] VASILE Chlordiazepoxide HCl 10 mg 06/28/19 05:00 Librium - PO 06/28/19 17:01 Q12H VASILE Chlordiazepoxide HCl 10 mg 06/27/19 00:00 Librium - PO 06/28/19 00:00 Q4H PRN WITHDRAWAL(CONT SUBST) Chlordiazepoxide HCl 10 mg 06/29/19 05:00 Librium - PO 06/29/19 05:01 ONCE@0500 ONE Eucalyptus/Menthol/Phenol/Sorbitol 1 each 06/24/19 13:22 Cepastat Lozenge - MM 06/30/19 13:23 Q4H PRN SORE THROAT Hydroxyzine Pamoate 25 mg 06/24/19 14:00 06/26/19 05:33 Vistaril - PO 06/30/19 13:23 25 mg Q4HWA VASILE Administration Ibuprofen 400 mg 06/24/19 13:22 Motrin - PO Q6H PRN PAIN LEVEL 1 - 3 Lisinopril 10 mg 06/24/19 14:10 06/25/19 10:40 Prinivil PO 10 mg DAILY VASILE Administration Magnesium Citrate 300 ml 06/24/19 13:22 Citroma - PO Q48H PRN CONSTIPATION Magnesium Hydroxide 30 ml 06/24/19 13:22 Milk Of Magnesia - PO PRN PRN CONSTIPATION Melatonin 5 mg 06/24/19 22:00 06/25/19 22:35 Melatonin PO Not Given HS VASILE Metformin HCl 500 mg 06/24/19 16:30 06/26/19 06:45 Glucophage - PO 500 mg BIDAC VASILE Administration Methocarbamol 500 mg 06/24/19 13:22 Robaxin - PO 06/30/19 13:23 Q6H PRN MUSCLE SPASMS Multivit/Folic Acid/Iron 1 tab 06/25/19 10:00 06/25/19 10:40 Vitamins (Sjr) - PO 1 tab DAILY VASILE Administration Thiamine HCl 100 mg 06/24/19 22:00 06/25/19 22:34 Vitamin B1 - PO 100 mg HS VASILE Administration Trazodone HCl 200 mg 06/25/19 22:00 06/25/19 22:34 Desyrel - PO 200 mg HS VASILE Administration a/p: Continue alcohol detox protocol DM- on metformin HTN: on lisinopril
[2019-06-26] MEDS: LISINOPRIL 10 MG TABLET (FP) PO SCH (10:38)
[2019-06-26] MEDS: PRENATAL VITAMINS W/ FOLIC ACID TABLET (FP) PO SCH (10:39)
[2019-06-26] MEDS: BISMUTH SUBSALICYLATE 524 MG/30 ML UD PO PRN (13:49)
[2019-06-26] MEDS: MELATONIN 5 MG TABLETS PO SCH (21:31)
[2019-06-26] MEDS: traZODone HCL 100 MG TABLET (FP) PO SCH (21:31)
[2019-06-26] MEDS: THIAMINE HCL 100 MG TABLET (FP) PO SCH (21:32)
[2019-06-27] MEDS ORDERED: chlordiazePOXIDE HCL 10 MG CAPSULE PO PRN
[2019-06-27] MEDS: hydrOXYzine PAMOATE 25 MG CAPSULE (FP) PO SCH ×5 (05:29→21:58)
[2019-06-27] MEDS: chlordiazePOXIDE HCL 10 MG CAPSULE PO SCH ×4 (05:29→22:29)
[2019-06-27] MEDS: metFORMIN HCL 500 MG TABLET (FP) PO SCH (07:09)
[2019-06-27] MEDS: PRENATAL VITAMINS W/ FOLIC ACID TABLET (FP) PO SCH (10:20)
[2019-06-27] MEDS: LISINOPRIL 10 MG TABLET (FP) PO SCH (10:20)
--- NOTE | 2019-06-27 14:53 | PN ---
S CIWA - CIWA Score Nausea/Vomitin-No Nausea/No Vomiting Muscle Tremors: None Anxiety: 3 Agitation: 2 Paroxysmal Sweats: No Perspiration Orientation: 0-Oriented Tacttile Disturbances: 0-None Auditory Disturbances: 1-Very Mild Visual Disturbances: 1-Very Mild Sensitivity Headache: 0-None Present CIWA-Ar Total Score: 7 BHS Progress Note (SOAP) Subjective: Anxious, Interrupted Sleep. Objective: PATIENT A & O X 3, OBSERVED AMBULATING ON DETOX UNIT UNASSISTED. IN NO ACUTE DISTRESS. 06/27/19 14:52 Vital Signs Temperature 97 F L 06/27/19 08:46 Pulse Rate 99 H 06/27/19 08:46 Respiratory Rate 16 06/27/19 08:46 Blood Pressure 142/73 06/27/19 08:46 O2 Sat by Pulse Oximetry (%) Laboratory Tests 06/24/19 06/24/19 06/24/19 12:30 13:40 13:40 WBC 6.8 RBC 4.85 Hgb 14.8 Hct 44.6 MCV 91.9 MCH 30.4 MCHC 33.1 RDW 13.9 Plt Count 254 MPV 8.1 Sodium 141 Potassium 4.2 Chloride 106 Carbon Dioxide 28 Anion Gap 8 BUN 18.3 H Creatinine 1.2 Est GFR (CKD-EPI)AfAm 77.33 Est GFR (CKD-EPI)NonAf 66.72 POC Glucometer 190 Random Glucose 183 H Calcium 9.2 Total Bilirubin 0.4 AST 19 ALT 32 Alkaline Phosphatase 121 H Total Protein 7.8 Albumin 3.7 RPR Titer 06/24/19 06/24/19 06/25/19 13:40 16:32 07:07 WBC RBC Hgb Hct MCV MCH MCHC RDW Plt Count MPV Sodium Potassium Chloride Carbon Dioxide Anion Gap BUN Creatinine Est GFR (CKD-EPI)AfAm Est GFR (CKD-EPI)NonAf POC Glucometer 252 253 Random Glucose Calcium Total Bilirubin AST ALT Alkaline Phosphatase Total Protein Albumin RPR Titer Nonreactive 06/25/19 06/26/19 06/26/19 16:36 05:32 16:36 WBC RBC Hgb Hct MCV MCH MCHC RDW Plt Count MPV Sodium Potassium Chloride Carbon Dioxide Anion Gap BUN Creatinine Est GFR (CKD-EPI)AfAm Est GFR (CKD-EPI)NonAf POC Glucometer 210 269 410 Random Glucose Calcium Total Bilirubin AST ALT Alkaline Phosphatase Total Protein Albumin RPR Titer 06/26/19 06/27/19 21:27 05:28 WBC RBC Hgb Hct MCV MCH MCHC RDW Plt Count MPV Sodium Potassium Chloride Carbon Dioxide Anion Gap BUN Creatinine Est GFR (CKD-EPI)AfAm Est GFR (CKD-EPI)NonAf POC Glucometer 299 318 Random Glucose Calcium Total Bilirubin AST ALT Alkaline Phosphatase Total Protein Albumin RPR Titer LABS NOTED. Assessment: 06/27/19 14:52 WITHDRAWAL SYMPTOMS. Plan: CONTINUE DETOX. INCREASE DAILY ORAL WATER INTAKE.
[2019-06-27] MEDS: THIAMINE HCL 100 MG TABLET (FP) PO SCH (21:58)
[2019-06-27] MEDS: traZODone HCL 100 MG TABLET (FP) PO SCH (21:58)
[2019-06-27] MEDS: MELATONIN 5 MG TABLETS PO SCH (21:58)
[2019-06-28] MEDS: hydrOXYzine PAMOATE 25 MG CAPSULE (FP) PO SCH ×5 (06:23→23:01)
[2019-06-28] MEDS: chlordiazePOXIDE HCL 10 MG CAPSULE PO SCH ×2 (06:25→16:40)
[2019-06-28] MEDS: PRENATAL VITAMINS W/ FOLIC ACID TABLET (FP) PO SCH (10:17)
[2019-06-28] MEDS: LISINOPRIL 10 MG TABLET (FP) PO SCH (10:17)
[2019-06-28] MEDS: BISMUTH SUBSALICYLATE 524 MG/30 ML UD PO PRN (11:27)
--- NOTE | 2019-06-28 11:50 | PN ---
S CIWA - CIWA Score Nausea/Vomitin-No Nausea/No Vomiting Muscle Tremors: None Anxiety: 2 Agitation: 1-Slight > Activity Paroxysmal Sweats: 2 Orientation: 0-Oriented Tacttile Disturbances: 0-None Auditory Disturbances: 0-None Visual Disturbances: 0-None Headache: 0-None Present CIWA-Ar Total Score: 5 BHS Progress Note (SOAP) Subjective: Feels ok, medication working ok Objective: 06/28/19 11:47 Last Vital Signs Temp Pulse Resp BP Pulse Ox 96.8 F L 91 H 18 124/72 06/28/19 08:40 06/28/19 08:40 06/28/19 08:40 06/28/19 08:40 Laboratory Tests 06/24/19 06/24/19 06/24/19 12:30 13:40 13:40 WBC 6.8 RBC 4.85 Hgb 14.8 Hct 44.6 MCV 91.9 MCH 30.4 MCHC 33.1 RDW 13.9 Plt Count 254 MPV 8.1 Sodium 141 Potassium 4.2 Chloride 106 Carbon Dioxide 28 Anion Gap 8 BUN 18.3 H Creatinine 1.2 Est GFR (CKD-EPI)AfAm 77.33 Est GFR (CKD-EPI)NonAf 66.72 POC Glucometer 190 Random Glucose 183 H Calcium 9.2 Total Bilirubin 0.4 AST 19 ALT 32 Alkaline Phosphatase 121 H Total Protein 7.8 Albumin 3.7 RPR Titer 06/24/19 06/24/19 06/25/19 13:40 16:32 07:07 WBC RBC Hgb Hct MCV MCH MCHC RDW Plt Count MPV Sodium Potassium Chloride Carbon Dioxide Anion Gap BUN Creatinine Est GFR (CKD-EPI)AfAm Est GFR (CKD-EPI)NonAf POC Glucometer 252 253 Random Glucose Calcium Total Bilirubin AST ALT Alkaline Phosphatase Total Protein Albumin RPR Titer Nonreactive 06/25/19 06/26/19 06/26/19 16:36 05:32 16:36 WBC RBC Hgb Hct MCV MCH MCHC RDW Plt Count MPV Sodium Potassium Chloride Carbon Dioxide Anion Gap BUN Creatinine Est GFR (CKD-EPI)AfAm Est GFR (CKD-EPI)NonAf POC Glucometer 210 269 410 Random Glucose Calcium Total Bilirubin AST ALT Alkaline Phosphatase Total Protein Albumin RPR Titer 03/13/20 03/14/20 03/14/20 21:27 05:28 16:45 WBC RBC Hgb Hct MCV MCH MCHC RDW Plt Count MPV Sodium Potassium Chloride Carbon Dioxide Anion Gap BUN Creatinine Est GFR (CKD-EPI)AfAm Est GFR (CKD-EPI)NonAf POC Glucometer 299 318 297 Random Glucose Calcium Total Bilirubin AST ALT Alkaline Phosphatase Total Protein Albumin RPR Titer 06/27/19 06/28/19 21:56 06:22 WBC RBC Hgb Hct MCV MCH MCHC RDW Plt Count MPV Sodium Potassium Chloride Carbon Dioxide Anion Gap BUN Creatinine Est GFR (CKD-EPI)AfAm Est GFR (CKD-EPI)NonAf POC Glucometer 413 354 Random Glucose Calcium Total Bilirubin AST ALT Alkaline Phosphatase Total Protein Albumin RPR Titer Labs reviewed: serum glucose/POC glucose high due to DM Assessment: 06/28/19 11:48 Withdrawal sxs Noted with hyperglycemia Plan: Continue detox Encouraged PO water intake Scheduled for discharge tomorrow DMT2 with hyperglycemia: monitor FS, continue metformin, educated on drinking more water instead of juice, follow up with PCP post discharge for management
[2019-06-28] MEDS: THIAMINE HCL 100 MG TABLET (FP) PO SCH (21:14)
[2019-06-28] MEDS: traZODone HCL 100 MG TABLET (FP) PO SCH (21:14)
[2019-06-28] MEDS: MELATONIN 5 MG TABLETS PO SCH (21:16)
[2019-06-29] MEDS ORDERED: chlordiazePOXIDE HCL 10 MG CAPSULE PO ONE (05:00)
[2019-06-29] MEDS: hydrOXYzine PAMOATE 25 MG CAPSULE (FP) PO SCH (06:05)
--- NOTE | 2019-06-29 09:12 | DS ---
[facility] Detox Discharge Summary Admission Date: 06/24/19 Discharge Date: 06/29/19 - History Present History: Alcohol Dependence - Physical Exam Results Vital Signs: Vital Signs Temperature 97.2 F L 06/28/19 20:30 Pulse Rate 97 H 06/28/19 20:30 Respiratory Rate 18 06/29/19 00:25 Blood Pressure 130/66 06/28/19 20:30 O2 Sat by Pulse Oximetry (%) Pertinent Admission Physical Exam Findings: Vital Signs Temperature 97.2 F L 06/28/19 20:30 Pulse Rate 97 H 06/28/19 20:30 Respiratory Rate 18 06/29/19 00:25 Blood Pressure 130/66 06/28/19 20:30 O2 Sat by Pulse Oximetry (%) Laboratory Tests 06/24/19 06/24/19 06/24/19 12:30 13:40 13:40 WBC 6.8 RBC 4.85 Hgb 14.8 Hct 44.6 MCV 91.9 MCH 30.4 MCHC 33.1 RDW 13.9 Plt Count 254 MPV 8.1 Sodium 141 Potassium 4.2 Chloride 106 Carbon Dioxide 28 Anion Gap 8 BUN 18.3 H Creatinine 1.2 Est GFR (CKD-EPI)AfAm 77.33 Est GFR (CKD-EPI)NonAf 66.72 POC Glucometer 190 Random Glucose 183 H Calcium 9.2 Total Bilirubin 0.4 AST 19 ALT 32 Alkaline Phosphatase 121 H Total Protein 7.8 Albumin 3.7 RPR Titer 06/24/19 06/24/19 06/25/19 13:40 16:32 07:07 WBC RBC Hgb Hct MCV MCH MCHC RDW Plt Count MPV Sodium Potassium Chloride Carbon Dioxide Anion Gap BUN Creatinine Est GFR (CKD-EPI)AfAm Est GFR (CKD-EPI)NonAf POC Glucometer 252 253 Random Glucose Calcium Total Bilirubin AST ALT Alkaline Phosphatase Total Protein Albumin RPR Titer Nonreactive 06/25/19 06/26/19 06/26/19 16:36 05:32 16:36 WBC RBC Hgb Hct MCV MCH MCHC RDW Plt Count MPV Sodium Potassium Chloride Carbon Dioxide Anion Gap BUN Creatinine Est GFR (CKD-EPI)AfAm Est GFR (CKD-EPI)NonAf POC Glucometer 210 269 410 Random Glucose Calcium Total Bilirubin AST ALT Alkaline Phosphatase Total Protein Albumin RPR Titer 06/26/19 06/27/19 06/27/19 21:27 05:28 16:45 WBC RBC Hgb Hct MCV MCH MCHC RDW Plt Count MPV Sodium Potassium Chloride Carbon Dioxide Anion Gap BUN Creatinine Est GFR (CKD-EPI)AfAm Est GFR (CKD-EPI)NonAf POC Glucometer 299 318 297 Random Glucose Calcium Total Bilirubin AST ALT Alkaline Phosphatase Total Protein Albumin RPR Titer 06/27/19 06/28/19 06/28/19 21:56 06:22 16:44 WBC RBC Hgb Hct MCV MCH MCHC RDW Plt Count MPV Sodium Potassium Chloride Carbon Dioxide Anion Gap BUN Creatinine Est GFR (CKD-EPI)AfAm Est GFR (CKD-EPI)NonAf POC Glucometer 413 354 293 Random Glucose Calcium Total Bilirubin AST ALT Alkaline Phosphatase Total Protein Albumin RPR Titer 06/28/19 06/29/19 21:08 06:04 WBC RBC Hgb Hct MCV MCH MCHC RDW Plt Count MPV Sodium Potassium Chloride Carbon Dioxide Anion Gap BUN Creatinine Est GFR (CKD-EPI)AfAm Est GFR (CKD-EPI)NonAf POC Glucometer 340 298 Random Glucose Calcium Total Bilirubin AST ALT Alkaline Phosphatase Total Protein Albumin RPR Titer aaox3 ambulating no acute distress lungs CTA - Treatment Hospital Course: Detox Protocol Followed, Detoxed Safely, Responded well, Discharged Condition Good, Rehab Referral Accepted - Medication Discharge Medications: Ambulatory Orders Lisinopril [Prinivil] 10 mg PO DAILY 11/08/16 metFORMIN HCL [Glucophage -] 500 mg PO BID 11/08/16 traZODone HCL [Desyrel -] 100 mg PO HS #30 tablet 03/17/18 - Diagnosis (1) Alcohol dependence with uncomplicated withdrawal Current Visit: Yes Status: Chronic (2) Phencyclidine dependence Current Visit: Yes Status: Chronic (3) Opioid dependence Current Visit: No Status: Active (4) Cocaine dependence Current Visit: Yes Status: Acute (5) Insomnia Current Visit: No Status: Acute (6) Substance-induced sleep disorder Current Visit: No Status: Acute (7) Substance-induced sleep disorder Current Visit: No Status: Acute (8) DM2 (diabetes mellitus, type 2) Current Visit: No Status: Chronic (9) Essential hypertension Current Visit: No Status: Chronic (10) GERD (gastroesophageal reflux disease) Current Visit: Yes Status: Chronic Qualifiers: Esophagitis presence: without esophagitis Qualified Code(s): K21.9 - Gastro-esophageal reflux disease without esophagitis - AMA Did Patient Leave Against Medical Advice: No
[2019-06-29 09:35] VITALS: BP 118/67; PULSE 81; TEMP 98.2
== END 2019-06-29 09:39 | disposition home or self-care (01) | DRG 773 ==
LOC: YASAS 10:26 → Y6N 13:46
PROVIDERS: ADMIT Allergy & Immunology; ATTEND Allergy & Immunology
PROC: HZ2ZZZZ Detoxification Services for Substance Abuse Treatment (ICD-10-PCS; principal; 2019-06-24)
DX: F10.230 Alcohol dependence with withdrawal, uncomplicated (principal); F11.20 Opioid dependence, uncomplicated; F14.20 Cocaine dependence, uncomplicated; F16.21 Hallucinogen dependence, in remission; F19.282 Other psychoactive substance dependence with psychoactive substance-induced sleep disorder; F43.10 Post-traumatic stress disorder, unspecified; F41.8 Other specified anxiety disorders; F32.9 Major depressive disorder, single episode, unspecified; G47.00 Insomnia, unspecified; I10 Essential (primary) hypertension; E11.65 Type 2 diabetes mellitus with hyperglycemia; Z79.84 Long term (current) use of oral hypoglycemic drugs; K21.9 Gastro-esophageal reflux disease without esophagitis; Z90.49 Acquired absence of other specified parts of digestive tract
CPT/HCPCS: 36415; 71046-TC-FY; 80053; 82962; 85027; 86593; 93005; 93010